=== PATIENT | male | born 1950 | race Caucasian/White ===

== ENCOUNTER → 2020-11-14 | Outpatient (CLI) | payer MEDICARE, BC, OTHER ==
[~2020-11-14] MED LIST: CETI10CH PO; FLON1SPR NARES; LIDOCAINE 1% MDV 20ML VIAL As Ordered ONE; SODIUM BICARBONATE 8.4% INJ 50MEQ 50 ML VIAL As Ordered ONE
[2020-11-14 14:29] VITALS: BP 140/70
--- NOTE | 2020-11-14 17:44 | REP ---
INDICATION: NODULE RT PAROTID GLAND. COMPARISON: None. TECHNIQUE: The procedure was performed by Suad Adan [facility], under the direct supervision of Dr. Freitas. The risks and benefits of the procedure were explained to the patient and an informed consent was obtained both verbally and written. Directly prior to the start of the procedure a formal time-out was completed in the procedure room. FINDINGS: Using ultrasound guidance the right parotid gland lymph node was localized. Due to the location of the lymph node it was determined that a fine needle aspiration would be the safest approach. The skin was prepped and draped in a sterile fashion. Approximately 3 mL of buffered lidocaine was used as a local anesthetic. Using ultrasound guidance a 8 fine needle aspirations were obtained using 25 gauge needles. Four specimens were sent to our lab here, and remaining 4 were sent out in RPMI solution, for further testing. The patient tolerated the procedure well and there were no immediate complications. After the appropriate amount of monitored convalescence the patient was discharged from the department. IMPRESSION: 1. Ultrasound-guided right parotid gland lymph node fine needle aspiration. <Electronically signed by Suad Adan > 11/14/20 [id number] <Electronically signed by Carson Freitas > 11/14/20 [id number]
== END ==
LOC: M IRPRO 12:59
PROVIDERS: ATTEND Dermatology
DX: R89.6 Abnormal cytological findings in specimens from other organs, systems and tissues (principal); D37.030 Neoplasm of uncertain behavior of the parotid salivary glands; R22.1 Localized swelling, mass and lump, neck

== ENCOUNTER → 2020-12-11 | Outpatient (CLI) | payer MEDICARE, BC, OTHER ==
[~2020-12-11] MED LIST changes: +ISOVUE-370 76% 100ML VIAL As Ordered ONE; -LIDOCAINE 1% MDV 20ML VIAL As Ordered ONE; -SODIUM BICARBONATE 8.4% INJ 50MEQ 50 ML VIAL As Ordered ONE
--- NOTE | 2020-12-11 15:16 | REP ---
INDICATION: NEOPLASM OF PAROTID SALIVARY GLAND. COMPARISON: Comparison CT study is from October 02, 2020.. TECHNIQUE: Helical scanning is acquired following the intravenous injection of 75 mL of Isovue 370. 3 mm axial images re-formatted. Coronal and sagittal MPR images are included. FINDINGS: Digital preliminary behavioral services tech radiographs are unremarkable. The previous study showed a lesion in the left side of the vallecular. This is again seen on however it appears to be nodular prominence of the posterior surface of the tongue with a small cystic area adjacent to some time crypt calcifications. This is unchanged in overall size in any event from the October 02, 2020 study. The submandibular and thyroid glands are normal and symmetric. There is no evidence of infrahyoid or suprahyoid adenopathy. There is however a low-density nodule or lymph node in the superficial lobe of the right parotid gland. This measures 1.5 x 1.5 x 1.2 cm in greatest diameter. This has enlarged since the CT study of October 02, 2020 when it measured0 11 mm in greatest diameter. No significant lesion is seen in the left parotid gland. Visualized paranasal sinuses are clear. No intraorbital abnormality is seen. The visualized intracranial structures are unremarkable. No vascular abnormality is observed. The lung apices are clear. No bony destructive lesion. There are degenerative disc changes in the cervical spine at C6-7. IMPRESSION: 1. There is a 1.5 cm low-density lesion in the right parotid gland. This has enlarged in the short interval since the prior study. Malignant lymph node cannot be excluded. Ultrasound-guided FNA could be considered if desired. 2. There is no evidence of suprahyoid or infrahyoid adenopathy. 3. There is asymmetry in the vallecular on the left which may be lymphoid tissue of the posterior tongue base with crypt like calcification. This is unchanged from the prior study. <Electronically signed by Jalen Head > 12/11/20 [id number]
== END ==
LOC: M RAD 13:49
PROVIDERS: ATTEND Otolaryngology
DX: D37.030 Neoplasm of uncertain behavior of the parotid salivary glands (principal)
CPT/HCPCS: 70491; Q9967

== ENCOUNTER → 2021-01-05 | Outpatient (CLI) | payer MEDICARE, BC, OTHER ==
[~2021-01-05] MED LIST changes: +ATOR1TAB19; -ISOVUE-370 76% 100ML VIAL As Ordered ONE
== END ==
LOC: M LABSMTC 10:43
PROVIDERS: ATTEND Anesthesiology
DX: Z01.812 Encounter for preprocedural laboratory examination (principal); Z20.822 Contact with and (suspected) exposure to COVID-19

== ENCOUNTER → 2021-01-05 | Outpatient (CLI) | payer MEDICARE, BC, OTHER ==
--- NOTE | 2021-01-06 00:11 | ECGEPIP ---
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
== END ==
LOC: M EKG 11:08
PROVIDERS: ATTEND Anesthesiology
DX: Z01.818 Encounter for other preprocedural examination (principal); Z85.828 Personal history of other malignant neoplasm of skin; Z20.822 Contact with and (suspected) exposure to COVID-19
CPT/HCPCS: 93005; U0003

== ENCOUNTER 2021-01-10 08:02 | Observation (INO) | payer MEDICARE, BC, OTHER ==
[~2021-01-10] VITALS: Ht 177.8 cm; Wt 87.1 kg
[~2021-01-10 08:02] MED LIST changes: +LIDOCAINE 1% MDV 20ML VIAL SQ PRN; +LR 1,000 ML IV ONE; +dexameTHASONE 4 MG/ML 1ML VIAL (J1100 PER 1MG) IV ONE
[2021-01-10] MEDS ORDERED: propofoL 200 MG/20 ML VIAL As Ordered ONE ×2 (10:08→14:19)
[2021-01-10] MEDS ORDERED: ROCURONIUM BROMIDE 50 MG/5 ML VIAL As Ordered ONE (10:08)
[2021-01-10] MEDS ORDERED: LIDOCAINE 2% 100MG/5ML SDV (FOR ANES.) As Ordered ONE (10:08)
[2021-01-10] MEDS ORDERED: fentaNYL 250 MCG/5 ML INJECTION (J3010) As Ordered ONE (10:09)
[2021-01-10] MEDS ORDERED: MIDAZOLAM INJ 2MG/2ML VIAL (J2250 PER 1MG) As Ordered ONE (10:09)
[2021-01-10] MEDS ORDERED: BACITRACIN OINTMENT 30GM TUBE As Ordered ONE (11:04)
[2021-01-10] MEDS ORDERED: LIDOCAINE W/EPINEPHRINE 1% 20ML VIAL As Ordered ONE (11:04)
[2021-01-10] MEDS ORDERED: EPINEPHrine 1MG/ML INJ 30ML MD-VIAL As Ordered ONE (13:19)
[2021-01-10] MEDS ORDERED: METHYLENE BLUE 0.5% (5MG/ML) 10 ML AMP (PROVAYBLUE) As Ordered ONE (13:20)
[2021-01-10] MEDS ORDERED: PHENYLephrine 500MCG 5ML (100MCG/ML) SYRINGE As Ordered ONE (14:19)
[2021-01-10] MEDS ORDERED: SUCCINYLCHOLINE 100 MG/5 ML SYRINGE (J0330) As Ordered ONE (14:19)
[2021-01-10] MEDS ORDERED: ONDANSETRON 4MG/2ML VIAL As Ordered ONE (14:19)
[2021-01-10] MEDS ORDERED: SUGAMMADEX SODIUM 500 MG/5 ML VIAL (BRIDION) As Ordered ONE (14:19)
[2021-01-10] MEDS ORDERED: ACETAMINOPHEN 1000MG 100ML IV BTL (OFIRMEV) (J0131 PER 10MG) As Ordered ONE (14:19)
[2021-01-10] MEDS ORDERED: ePHEDrine SULFATE 25 MG/5 ML(5MG/ML) SYRINGE As Ordered ONE (14:20)
[2021-01-10] MEDS ORDERED: HYDROmorphone HCL 2 MG/ML 1ML VIAL (J1170) As Ordered ONE (14:20)
[2021-01-10] MEDS ORDERED: LABETALOL 100MG/20ML VIAL As Ordered ONE (14:20)
[2021-01-10] MEDS ORDERED: hydrALAZINE 20MG/ML 1ML VIAL (J0360 PER 20MG) As Ordered ONE (14:20)
[2021-01-10] MEDS ORDERED: ONDANSETRON 4MG/2ML VIAL IV PRN ×2 (16:55→17:00)
[2021-01-10] MEDS ORDERED: ACETAMINOPHEN TAB 650MG DOSE (2X325MG) PO PRN (16:55)
[2021-01-10] MEDS ORDERED: HYDROMORPHONE HCL 0.5 MG/ 0.5 ML SYRINGE (J1170 PER 1) IV PRN (17:00)
[2021-01-10] MEDS ORDERED: fentaNYL 100 MCG/2 ML INJECTION (J3010) IV PRN (17:00)
[2021-01-10] MEDS ORDERED: oxyCODONE 5MG TAB PO PRN (17:00)
[2021-01-10] MEDS ORDERED: LR 1,000 ML IV SCH (17:00)
--- NOTE | 2021-01-10 17:17 | HPEPDOC ---
[facility] Medical History & Physical Date of Admission Jan 10, 2021 Date of Service: Jan 10, 2021 Attending Physician: MIR PAGE DO History and Physical CHIEF COMPLAINT: Right parotid mass status post parotidectomy HISTORY OF PRESENT ILLNESS: Patient is a 70-year-old male who presented to the hospital today with a history of a right parotid mass. In talking with the patient's ENT Dr. 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 Patient was referred to ENT who performed a right-sided peridectomy today. Because of the patient's late surgery, ENT requested that the patient be admitted into the hospital overnight for further monitoring. In the PACU, patient is still sleepy but is able to open his eyes and answer questions appropriately. In reviewing the chart, does not appear the patient has much of a medical history. PAST MEDICAL HISTORY: 1. Seasonal allergies. PAST SURGICAL HISTORY: 1. Tonsillectomy. 2. Colonoscopy. 3. Surgery to remove SCC of the right denominational 4. Right peridectomy (current admission) SOCIAL HISTORY: Patient denies smoking, drinking alcohol or illicit drug use FAMILY HISTORY: Patient denies any known family history ALLERGIES: Please see below. REVIEW OF SYSTEMS: General: Patient denies fevers HEENT: Patient denies headaches Cardiovascular: Patient denies chest pain Respiratory: Patient denies shortness of breath, cough GI: Patient denies abdominal pain, nausea, vomiting, diarrhea : Patient denies increased frequency or pain with urination Extremities: Patient denies swelling or pain in extremities Neurological: Patient denies numbness or tingling in legs Skin: Patient denies any new rashes or lesions. Hematologic: Patient denies any easy bruising. Lymphatic: Patient denies any lumps lumps or bumps in neck, axilla, or groin HOME MEDICATIONS: Please see below. PHYSICAL EXAMINATION: VITAL SIGNS: Temperature 97.6, pulse 97, respiratory rate 18, blood pressure 137/62, pulse oximetry 97% on room air. General: Alert and oriented male patient who was laying in the bed when I walked in the room. Patient not appear to be in any acute distress. HEENT: Patient had a dressing wrapped around the patient's head with a bandage over the right cheek with some blood on the outside of the bandage. Neck: No lymphadenopathy or thyromegaly Cardiac: Regular rate and rhythm, no murmurs, normal S1, normal S2 Pulm: Clear to auscultation bilaterally. No wheezes, rhonchi, rales Abd: Nondistended, nontender to palpation, normal bowel sounds Ext: No edema bilateral lower extremities LABORATORY DATA: See below. IMAGING: No imaging has been performed MICROBIOLOGY: Please see below. ASSESSMENT: 70-year-old male who presented to the hospital for a right parotidectomy due to a right parotid mass . PLAN: 1. Right parotid mass. Patient was brought to the operating room by Dr. Redmond of ENT who requested admission. Patient will be observed overnight. Frozen sections of the mass apparently did not show any evidence of metastatic disease however, official pathology report is still pending. Patient will be placed on continuous pulse oximetry monitoring overnight. 2. Elevated blood pressures without the diagnosis of hypertension. Patient's blood pressures apparently were elevated during the procedure. This will need to be closely monitored and if the patient's blood pressures are high, patient be started on amlodipine 5 mg daily. 3. Seasonal allergies. Continue with home medication. 4. DVT prophylaxis: Teds and sequentials 5. CODE STATUS: Full code Disposition: Patient will be admitted to the medical surgical floor under observation. Most likely discharge home tomorrow. Vital Signs Vital Signs Date Time Temp Pulse Resp B/P (MAP) Pulse Ox O2 Delivery O2 Flow Rate FiO2 01/10/21 16:50 97 18 151/67 (95) 97 Non-Rebreather 12.0 01/10/21 16:45 97.6 Home Medications Scheduled Cetirizine HCl (Cetirizine HCl) 10 Mg Tab.chew, 10 MG PO DAILY for allergy symptoms Fluticasone Propionate (Flonase Allergy Relief) 9.9 Ml [place].susp, 2 SPRAY NARES DAILY Allergies Coded Allergies: No Known Allergies (Unverified , 01/03/21) A-FIB/CHADSVASC A-FIB History Current/History of A-Fib/PAF?: No MIR PAGE DO Jan 10, 2021 17:16
[2021-01-10 17:58] VITALS: BP 151/80
[2021-01-10] MEDS: dexameTHASONE 4 MG/ML 1ML VIAL (J1100 PER 1MG) IV SCH (18:22)
[2021-01-10] MEDS: PERCOCET 5MG/325MG TAB PO PRN (18:23)
[2021-01-10 19:00] VITALS: BP 143/77
[2021-01-10 20:30] VITALS: BP 144/77
[2021-01-10 21:30] VITALS: BP 144/76
[2021-01-10 22:30] VITALS: BP 145/76
[2021-01-11 00:21] VITALS: O2SAT 96
[2021-01-11 02:00] VITALS: BP 136/69
[2021-01-11] MEDS: dexameTHASONE 4 MG/ML 1ML VIAL (J1100 PER 1MG) IV SCH ×2 (02:02→08:27)
[2021-01-11 06:00] VITALS: BP 134/68
[2021-01-11 06:46] LABS: HEMATOCRIT 39.6 % (42.0-52.0); HEMOGLOBIN 13.3 g/dl (13.5-17.5); MEAN CORPUSCULAR HEMOGLOBIN 31.1 pg (27.0-33.0); MEAN CORPUSCULAR HGB CONC 33.6 g/dl (32.0-36.5); MEAN CORPUSCULAR VOLUME 92.5 fl (80.0-96.0); PLATELET COUNT, AUTOMATED 240 10^3/uL (150-450); RED BLOOD COUNT 4.28 10^6/uL (4.30-6.10); WHITE BLOOD COUNT 13.4 10^3/uL (4.0-10.0)
[2021-01-11 07:12] LABS: BLOOD UREA NITROGEN 18 MG/DL (7-18); CALCIUM LEVEL 8.5 MG/DL (8.8-10.2); CARBON DIOXIDE LEVEL 25 MEQ/L (21-32); CHLORIDE LEVEL 107 MEQ/L (98-107); CREATININE FOR GFR 1.01 MG/DL (0.70-1.30); GLOMERULAR FILTRATION RATE > 60.0 (>42); GLUCOSE, FASTING 157 MG/DL (70-100); MAGNESIUM LEVEL 2.3 MG/DL (1.8-2.4); POTASSIUM SERUM 4.1 MEQ/L (3.5-5.1); SODIUM LEVEL 139 MEQ/L (136-145)
[2021-01-11] MEDS: PERCOCET 5MG/325MG TAB PO PRN (08:33)
[2021-01-11] MEDS ORDERED: FLUTICASONE PROP 0.05% NASAL SPRAY 16 GM (FLONASE) NARES SCH (09:00)
[2021-01-11] MEDS ORDERED: CETIRIZINE (ZyrTEC) 10 MG TAB PO SCH (09:00)
[2021-01-11] MEDS ORDERED: PERCOCET PO (09:13)
[2021-01-11 10:00] VITALS: BP 134/72
--- NOTE | 2021-01-11 15:20 | DS.PDOC ---
Discharge Summary General Date of Admission Jan 10, 2021 at 16:52 Date of Discharge 01/11/2021 Attending Physician: MIR PAGE DO Discharge Summary PROCEDURES PERFORMED DURING STAY: Right parotidectomy ADMITTING DIAGNOSES: 1. Right parotid mass. 2. Elevated blood pressure without the diagnosis of hypertension 3. Seasonal allergies DISCHARGE DIAGNOSES: 1. Right parotid mass. 2. 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 HISTORY OF PRESENT ILLNESS: Patient is a 70-year-old male presented to hospital yesterday with a history of right parotid mass. Patient had a right parotidectomy performed by Dr. Redmond of ENT. Patient had a history of recent surgery for a squamous cell carcinoma from the right mandaen and was thought that the mass may have been a possible metastasis. ENT performed the surgery and wanted the patient to stay overnight for further monitoring. Patient was doing well after his surgery when he was seen in the PACU. HOSPITAL COURSE: Overnight, the patient did not have any acute events. Patient was feeling well this morning was able to walk around the room without any difficulty. Patient's dressing did have some blood on up and did have to be changed but was otherwise doing well. Patient was deemed ready for discharge on 01/11/2021 with instructions to go to the ENT office for a checkup and have the wound redressed and the drain removed. Patient was discharged home with instructions to stop off at the ENT office on 01/11/2021. I did speak with Dr. Redmond who was in agreement with this plan and facilitate the patient's appointment with his office. Patient was also sent a prescription for narcotic pain medication with Istop: [id number] showing that the patient has not been prescribed any narcotic pain medication or other controlled substances. DISCHARGE MEDICATIONS: Please see below. ALLERGIES: Please see below. PHYSICAL EXAMINATION ON DISCHARGE: VITAL SIGNS: Please see below. General: Alert and oriented male patient who had a dressing around his head when I walked in the room. Patient not appear to be in any acute distress. HEENT: Patient had dressing wrapped around his head with a bandage over the right cheek with some blood on the outside of the bandage. Patient had intact facial movements on bilateral sides. Neck: No lymphadenopathy or thyromegaly Cardiac: Regular rate and rhythm, no murmurs, normal S1, normal S2 Pulm: Clear to auscultation bilaterally. No wheezes, rhonchi, rales Abd: Nondistended, nontender to palpation, normal bowel sounds Ext: No edema bilateral lower extremities LABORATORY DATA: Please see below. IMAGING: No imaging is was performed PROGNOSIS: Good ACTIVITY: As tolerated. DIET: Regular DISCHARGE PLAN: Discharge home DISPOSITION: . DISCHARGE INSTRUCTIONS: 1. Follow-up with your primary care provider within 3 to 5 days of discharge. 2. Follow-up with ENT straight from the hospital so the drain can be pulled and the wound can be checked 3. Return to the emergency department if symptoms worsen ITEMS TO FOLLOWUP ON ON OUTPATIENT: 1. Healing and pathology results. DISCHARGE CONDITION: Stable. TIME SPENT ON DISCHARGE: 25 minutes. Vital Signs/I&Os Vital Signs Date Time Temp Pulse Resp B/P (MAP) Pulse Ox O2 Delivery O2 Flow Rate FiO2 01/11/21 10:00 98.5 98 18 134/72 (92) 96 Room Air 01/10/21 16:50 12.0 I&O- Last 24 Hours up to 6 AM 01/11/21 06:00 Intake Total 1510 ml Output Total 1425 ml Balance 85 ml Laboratory Data Labs 24H Laboratory Tests 2 01/11/21 05:55: Nucleated Red Blood Cells % (auto) 0.0, Anion Gap 7L, Glomerular Filtration Rate > 60.0, Calcium Level 8.5L, Magnesium Level 2.3 CBC/BMP Laboratory Tests 01/11/21 05:55 Discharge Medications Scheduled Cetirizine HCl (Cetirizine HCl) 10 Mg Tab.chew, 10 MG PO DAILY for allergy symptoms, (Reported) Fluticasone Propionate (Flonase Allergy Relief) 9.9 Ml [place].susp, 2 SPRAY NARES DAILY, (Reported) Scheduled PRN Oxycodone/Acetaminophen (Oxycodone-Acetaminophen 5-325) 1 Each Tablet, 1 TAB PO Q8HP PRN for PAIN LEVEL 6-10 Allergies Coded Allergies: No Known Allergies (Unverified , 01/03/21) MIR PAGE DO Jan 11, 2021 15:20
== END 2021-01-11 11:05 | disposition home or self-care (01) ==
LOC: M SDC 08:02 → M MS5PR 16:52
PROVIDERS: ADMIT Family Medicine; ATTEND Otolaryngology
DX: C07 Malignant neoplasm of parotid gland (principal); K11.8 Other diseases of salivary glands; J30.2 Other seasonal allergic rhinitis; Z79.899 Other long term (current) drug therapy
CPT/HCPCS: 36415; 42410; 80048; 83735; 85027; 88305; 88331; 88341; 88342; G0378; J0131; J0330; J0360; J0697; J1100; J1170; J2250; J2370; J2405; J3010; Q9968

== ENCOUNTER → 2022-02-23 | Outpatient (CLI) | payer MEDICARE, BC, OTHER ==
[~2022-02-23] MED LIST changes: -LIDOCAINE 1% MDV 20ML VIAL SQ PRN; -LR 1,000 ML IV ONE; +PERCOCET PO; -dexameTHASONE 4 MG/ML 1ML VIAL (J1100 PER 1MG) IV ONE
== END ==
LOC: M LABSMTC 11:43
PROVIDERS: ATTEND Anesthesiology
DX: Z01.812 Encounter for preprocedural laboratory examination (principal); Z20.822 Contact with and (suspected) exposure to COVID-19

== ENCOUNTER 2022-02-27 11:52 | Day surgery (SDC) | payer MEDICARE, BC, OTHER ==
[~2022-02-27] VITALS: Ht 177.8 cm; Wt 80.3 kg
[~2022-02-27 11:52] MED LIST changes: +dexameTHASONE 4 MG/ML 1ML VIAL (J1100 PER 1MG) IV ONE
[2022-02-27] MEDS ORDERED: LR 1,000 ML IV SCH ×2 (12:00→17:20)
[2022-02-27] MEDS ORDERED: propofoL 200 MG/20 ML VIAL As Ordered ONE (14:33)
[2022-02-27] MEDS ORDERED: LIDOCAINE 2% 100MG/5ML SDV (FOR ANES.) As Ordered ONE (14:34)
[2022-02-27] MEDS ORDERED: LIDOCAINE W/EPINEPHRINE 1% 20ML VIAL As Ordered ONE (15:29)
[2022-02-27] MEDS ORDERED: BACITRACIN OINTMENT 30GM TUBE As Ordered ONE (15:29)
[2022-02-27] MEDS ORDERED: MIDAZOLAM INJ 2MG/2ML VIAL (J2250 PER 1MG) As Ordered ONE (15:39)
[2022-02-27] MEDS ORDERED: fentaNYL 100 MCG/2 ML INJECTION As Ordered ONE ×2 (15:39→16:23)
[2022-02-27] MEDS ORDERED: ONDANSETRON 4MG 2ML VIAL As Ordered ONE (16:24)
[2022-02-27] MEDS ORDERED: KETOROLAC 60MG 2ML VIAL As Ordered ONE (16:24)
[2022-02-27] MEDS ORDERED: ONDANSETRON 4MG 2ML VIAL IV PRN (17:20)
[2022-02-27] MEDS ORDERED: fentaNYL 100 MCG/2 ML INJECTION IV PRN (17:20)
[2022-02-27] MEDS ORDERED: HYDROMORPHONE HCL 0.5 MG/ 0.5 ML SYRINGE (J1170 PER 1) IV PRN (17:20)
[2022-02-27] MEDS ORDERED: oxyCODONE 5MG TAB PO PRN (17:20)
[2022-02-27 18:12] VITALS: BP 153/97
== END 2022-02-27 18:25 | disposition home or self-care (01) ==
LOC: M SDC 11:52
PROVIDERS: ATTEND Otolaryngology
DX: C44.309 Unspecified malignant neoplasm of skin of other parts of face (principal); Z79.899 Other long term (current) drug therapy
CPT/HCPCS: 21034; 88305; J1885; J2250; J2405; J3010